=== PATIENT | female | born 1945 | race Caucasian/White ===

== ENCOUNTER 2017-08-24 07:52 | Inpatient (IN) | payer MEDICARE, OTHER ==
[~2017-08-24] VITALS: Ht 162.6 cm; Wt 97.2 kg
[~2017-08-24 07:52] MED LIST: ALLO300T PO; AMIT10TA PO; AMLO5TAB2 PO; BUDE10.2 INH; BUDE180A INH; CHOL500045 PO; CYAN100028 PO; FISH OIL OMEGA1 EACH PO; FURO40TA6 PO; GABA300C10 PO; HYDR-3237 PO; LEVO150T5 PO; LOSA50TA6 PO; METF100010 PO; OMEP40CA6 PO; POTA8TAB6 PO; SIMV40TA3 PO
[2017-08-24] MEDS ORDERED: ALBUTEROL SULFATE 2.5 MG/3 ML ONE (08:05)
[2017-08-24] MEDS ORDERED: ALBUTEROL SULFATE 2.5 MG/3 ML NPPB ONE (08:10)
[2017-08-24] MEDS ORDERED: SODIUM CHLORIDE 0.9% 1,000ML IVBOLUS ONE (08:30)
[2017-08-24] MEDS ORDERED: SODIUM CHLORIDE FLUSH 10ML SYR IVF ONE (08:30)
[2017-08-24 08:33] LABS: BASOPHILS # (AUTO) 0.02 x10^3/uL (0-0.1); BASOPHILS % (AUTO) 0 % (0-1); EOSINOPHILS # (AUTO) 0.02 x10^3/uL (0-0.4); EOSINOPHILS % (AUTO) 0 % (1-7); LYMPHOCYTES # (AUTO) 1.84 x10^3/uL (1-3.4); LYMPHOCYTES % (AUTO) 22 % (22-44); MD NO; MEAN CORPUSCULAR HEMOGLOBIN 28.8 pg (27.0-34.8); MEAN CORPUSCULAR HGB CONC 32.8 g/dL (32.4-35.8); MEAN CORPUSCULAR VOLUME 87.9 fL (80-100); MEAN PLATELET VOLUME 7.4 fL (7.4-10.4); MONOCYTES # (AUTO) 0.58 x10^3/uL (0.2-0.8); MONOCYTES % (AUTO) 7 % (2-9); NEUTROPHILS # (AUTO) 5.93 x10^3/uL (1.8-6.8); NEUTROPHILS % (AUTO) 71 % (42-75); PLATELET COUNT 528 x10^3/uL (130-400); RED CELL DISTRIBUTION WIDTH 18.3 % (9.6-15.2)
[2017-08-24 08:38] LABS: INTERNATIONAL NORMALIZED RATIO 0.91 (0.93-1.1); PROTHROMBIN TIME 9.5 Seconds (9.6-11.5)
[2017-08-24 08:42] LABS: ALANINE AMINOTRANSFERASE 22 U/L (12-78); ALBUMIN 2.3 g/dL (3.4-5.0); ANION GAP 9 mmol/L (5-15); CALCIUM 8.2 mg/dL (8.5-10.1); CHLORIDE 100 mmol/L (98-107)
[2017-08-24 08:44] LABS: ALKALINE PHOSPHATASE 88 U/L (45-117); BILIRUBIN,TOTAL 0.3 mg/dL (0.2-1.0); TOTAL PROTEIN 5.8 g/dL (6.4-8.2)
[2017-08-24] MEDS ORDERED: ALPH300C PO (10:07)
[2017-08-24] MEDS ORDERED: ALPR0.5T10 SL (10:08)
[2017-08-24] MEDS ORDERED: AMIT50TA PO (10:09)
[2017-08-24] MEDS ORDERED: AMIT10TA PO (10:10)
[2017-08-24] MEDS ORDERED: CYAN1TAB29 PO (10:11)
[2017-08-24] MEDS ORDERED: ASPI-650 PO (10:11)
[2017-08-24] MEDS ORDERED: MULT-752 PO (10:12)
[2017-08-24] MEDS ORDERED: CHOL5000 PO (10:13)
[2017-08-24] MEDS ORDERED: FOLI0.8T2 PO (10:14)
[2017-08-24] MEDS ORDERED: FURO20TA3 PO (10:15)
[2017-08-24] MEDS ORDERED: IRON15TA3 PO (10:17)
[2017-08-24] MEDS ORDERED: POTA20TA37 PO (10:19)
[2017-08-24] MEDS ORDERED: DAPA1TAB5 PO (10:20)
[2017-08-24 10:21] LABS: CULTURE INDICATED? YES; MICROSCOPIC INDICATED
[2017-08-24] MEDS ORDERED: CLOB15CR19 EXT (10:21)
[2017-08-24] MEDS ORDERED: ALLO300T PO (10:23)
[2017-08-24] MEDS ORDERED: CEFTRIAXONE PMX 1GM/50ML 50 ML ONE (11:36)
[2017-08-24] MEDS ORDERED: CEFTRIAXONE PMX 1GM/50ML 50 ML IV ONE (12:00)
[2017-08-24] MEDS ORDERED: ACETAMINOPHEN 325 MG TABLET PO PRN (13:30)
[2017-08-24] MEDS ORDERED: METOCLOPRAMIDE 5 MG/ML, 2ML IVPush PRN (13:30)
[2017-08-24] MEDS ORDERED: PROMETHAZINE 25 MG/ML, 1ML IM PRN (13:30)
[2017-08-24] MEDS ORDERED: ONDANSETRON 2MG/ML, 2ML IVPush PRN (13:30)
[2017-08-24] MEDS: ENOXAPARIN 40 MG/0.4 ML SQ SCH (14:39)
[2017-08-24] MEDS: ONDANSETRON ODT 4 MG PO PRN ×2 (14:39→20:18)
[2017-08-24] MEDS: SODIUM CHLORIDE 0.9% 1,000 ML IV SCH ×2 (14:39→23:58)
[2017-08-24 16:31] VITALS: BP 175/78
[2017-08-24 16:37] VITALS: BP 173/82
[2017-08-24] MEDS ORDERED: hydrALAzine 20 MG/ML, 1ML IV PRN (17:00)
[2017-08-24 19:04] VITALS: BP 161/80
[2017-08-24] MEDS: GABAPENTIN 400 MG CAPSULE PO SCH (20:18)
[2017-08-24] MEDS: SIMVASTATIN 40 MG TABLET PO SCH (20:18)
[2017-08-24] MEDS: LOSARTAN 50MG TABLET PO SCH (20:19)
[2017-08-24] MEDS: AMITRIPTYLINE 10 MG TABLET PO SCH (20:19)
[2017-08-24] MEDS: OMEPRAZOLE 20 MG CAPSULE.DR PO SCH (20:19)
[2017-08-24] MEDS: CEFTRIAXONE PMX 1GM/50ML 50 ML IV SCH (23:58)
[2017-08-25 01:12] VITALS: BP 149/68
[2017-08-25 04:50] LABS: BASOPHILS # (AUTO) 0.03 x10^3/uL (0-0.1); BASOPHILS % (AUTO) 0 % (0-1); EOSINOPHILS # (AUTO) 0.14 x10^3/uL (0-0.4); EOSINOPHILS % (AUTO) 2 % (1-7); LYMPHOCYTES # (AUTO) 2.86 x10^3/uL (1-3.4); LYMPHOCYTES % (AUTO) 35 % (22-44); MD NO; MEAN CORPUSCULAR HEMOGLOBIN 29.3 pg (27.0-34.8); MEAN CORPUSCULAR HGB CONC 32.6 g/dL (32.4-35.8); MEAN CORPUSCULAR VOLUME 89.9 fL (80-100); MEAN PLATELET VOLUME 7.5 fL (7.4-10.4); MONOCYTES % (AUTO) 9 % (2-9); NEUTROPHILS # (AUTO) 4.36 x10^3/uL (1.8-6.8); NEUTROPHILS % (AUTO) 54 % (42-75); PLATELET COUNT 441 x10^3/uL (130-400); RED BLOOD COUNT 3.92 x10^6/uL (3.82-5.3)
[2017-08-25 05:02] LABS: ALBUMIN 2.1 g/dL (3.4-5.0); ANION GAP 5 mmol/L (5-15); CALCIUM 7.6 mg/dL (8.5-10.1); CHLORIDE 105 mmol/L (98-107)
[2017-08-25 05:13] LABS: ALANINE AMINOTRANSFERASE 20 U/L (12-78); ALKALINE PHOSPHATASE 75 U/L (45-117); BILIRUBIN,TOTAL 0.3 mg/dL (0.2-1.0); CREATININE 0.67 mg/dL (0.55-1.02); TOTAL PROTEIN 5.3 g/dL (6.4-8.2)
[2017-08-25] MEDS: LEVOTHYROXINE 150 MCG TABLET PO SCH (06:40)
[2017-08-25 08:18] VITALS: BP 177/84
[2017-08-25] MEDS: AMLODIPINE 5 MG TABLET PO SCH (08:57)
[2017-08-25] MEDS: GABAPENTIN 400 MG CAPSULE PO SCH ×3 (08:57→21:06)
[2017-08-25] MEDS: ASPIRIN 81 MG TABLET EC PO SCH (08:58)
[2017-08-25] MEDS: LOSARTAN 50MG TABLET PO SCH ×2 (08:58→21:07)
[2017-08-25] MEDS: ALLOPURINOL 300 MG TABLET PO SCH (08:58)
[2017-08-25] MEDS: OMEPRAZOLE 20 MG CAPSULE.DR PO SCH ×2 (08:58→21:06)
[2017-08-25] MEDS: ONDANSETRON ODT 4 MG PO PRN (08:58)
[2017-08-25] MEDS: SODIUM CHLORIDE 0.9% 1,000 ML IV SCH ×3 (09:01→21:08)
[2017-08-25] MEDS: GUAIFENESIN ER 600 MG TABLET PO SCH ×2 (09:52→21:06)
[2017-08-25 11:22] LABS: CLOSTRIDIUM DIFFICILE ANTIGEN NEGATIVE; CLOSTRIDIUM DIFFICILE TOXIN NEGATIVE (Negative)
[2017-08-25] MEDS: ENOXAPARIN 40 MG/0.4 ML SQ SCH (12:51)
[2017-08-25 14:13] VITALS: BP 162/89
[2017-08-25 19:06] VITALS: BP 168/80
[2017-08-25] MEDS: SIMVASTATIN 40 MG TABLET PO SCH (21:05)
[2017-08-25] MEDS: AMITRIPTYLINE 10 MG TABLET PO SCH (21:06)
[2017-08-25] MEDS: CEFTRIAXONE PMX 1GM/50ML 50 ML IV SCH (23:54)
[2017-08-26 01:04] VITALS: BP 154/75
[2017-08-26] MEDS: LEVOTHYROXINE 150 MCG TABLET PO SCH (05:29)
[2017-08-26] MEDS: SODIUM CHLORIDE 0.9% 1,000 ML IV SCH (05:29)
[2017-08-26] MEDS ORDERED: LOPERAMIDE 2 MG CAPSULE PO PRN (08:00)
[2017-08-26 08:42] LABS: ANION GAP 6 mmol/L (5-15); CALCIUM 7.7 mg/dL (8.5-10.1); CHLORIDE 109 mmol/L (98-107); CREATININE 0.59 mg/dL (0.55-1.02)
[2017-08-26] MEDS: OMEPRAZOLE 20 MG CAPSULE.DR PO SCH (09:08)
[2017-08-26] MEDS: LOSARTAN 50MG TABLET PO SCH (09:08)
[2017-08-26] MEDS: ASPIRIN 81 MG TABLET EC PO SCH (09:08)
[2017-08-26] MEDS: ALLOPURINOL 300 MG TABLET PO SCH (09:08)
[2017-08-26] MEDS: AMLODIPINE 5 MG TABLET PO SCH (09:08)
[2017-08-26] MEDS: GABAPENTIN 400 MG CAPSULE PO SCH (09:08)
[2017-08-26] MEDS: GUAIFENESIN ER 600 MG TABLET PO SCH (09:08)
[2017-08-26 09:34] VITALS: BP 169/64
[2017-08-26] MEDS: ENOXAPARIN 40 MG/0.4 ML SQ SCH (13:30)
[2017-08-26] MEDS ORDERED: CEFD300C37 PO (13:51)
== END 2017-08-26 16:07 | disposition home or self-care (01) | DRG 391 ==
LOC: ED 11:30 → EDIP 11:31 → ED 11:50 → 3NW 12:17
PROVIDERS: ADMIT Internal Medicine; ATTEND Internal Medicine
DX: A08.4 Viral intestinal infection, unspecified (principal); E43 Unspecified severe protein-calorie malnutrition; N39.0 Urinary tract infection, site not specified; E11.42 Type 2 diabetes mellitus with diabetic polyneuropathy; E87.1 Hypo-osmolality and hyponatremia; R79.89 Other specified abnormal findings of blood chemistry; I10 Essential (primary) hypertension; E78.5 Hyperlipidemia, unspecified; E89.0 Postprocedural hypothyroidism; G89.29 Other chronic pain; R60.0 Localized edema; R94.6 Abnormal results of thyroid function studies; J40 Bronchitis, not specified as acute or chronic; G47.30 Sleep apnea, unspecified; K21.9 Gastro-esophageal reflux disease without esophagitis; Z82.3 Family history of stroke; Z86.14 Personal history of Methicillin resistant Staphylococcus aureus infection; Z89.412 Acquired absence of left great toe; Z90.710 Acquired absence of both cervix and uterus; Z68.36 Body mass index [BMI] 36.0-36.9, adult; Z90.49 Acquired absence of other specified parts of digestive tract
CPT/HCPCS: 36415; 74022; 80048; 80053; 81001; 83605; 83690; 83735; 84100; 84443; 85025; 85610; 87077; 87086; 87186; 87324; 93005; 94640; 96361; 96365; J0696; J1650; J7613; Q0162; J2765; J7030

== ENCOUNTER 2017-11-20 08:35 | Inpatient (IN) | payer MEDICARE, OTHER ==
[~2017-11-20] VITALS: Ht 162.6 cm; Wt 90.3 kg
[~2017-11-20 08:35] MED LIST changes: +ALPH300C PO; +ALPR0.5T10 SL; +AMIT50TA PO; -AMLO5TAB2 PO; +AMLO5TAB7 PO; +ASPI-650 PO; +CEFD300C37 PO; +CHOL5000 PO; +CLOB15CR19 EXT; +CYAN1TAB29 PO; +DAPA1TAB5 PO; +FOLI0.8T2 PO; +FURO20TA3 PO; +IRON15TA3 PO; -LOSA50TA6 PO; +LOSA50TA7 PO; +MULT-752 PO; +POTA20TA37 PO
[2017-11-20] MEDS ORDERED: SODIUM CHLORIDE FLUSH 10ML SYR IVF ONE (09:30)
[2017-11-20 09:35] LABS: BASOPHILS # (AUTO) 0.07 x10^3/uL (0-0.1); BASOPHILS % (AUTO) 1 % (0-1); EOSINOPHILS # (AUTO) 0.67 x10^3/uL (0-0.4); EOSINOPHILS % (AUTO) 7 % (1-7); LYMPHOCYTES # (AUTO) 2.85 x10^3/uL (1-3.4); LYMPHOCYTES % (AUTO) 31 % (22-44); MD NO; MEAN CORPUSCULAR HEMOGLOBIN 30.8 pg (27.0-34.8); MEAN CORPUSCULAR HGB CONC 33.1 g/dL (32.4-35.8); MEAN PLATELET VOLUME 7.4 fL (7.4-10.4); MONOCYTES # (AUTO) 0.88 x10^3/uL (0.2-0.8); MONOCYTES % (AUTO) 9 % (2-9); NEUTROPHILS # (AUTO) 4.84 x10^3/uL (1.8-6.8); NEUTROPHILS % (AUTO) 52 % (42-75); PLATELET COUNT 448 x10^3/uL (130-400); RED BLOOD COUNT 4.12 x10^6/uL (3.82-5.3); RED CELL DISTRIBUTION WIDTH 13.5 % (9.6-15.2)
[2017-11-20] MEDS ORDERED: ATOR-2 PO (09:36)
[2017-11-20] MEDS ORDERED: ALPH200C PO (09:37)
[2017-11-20] MEDS ORDERED: FURO-92 PO (09:40)
[2017-11-20 09:41] LABS: HCT (SEDRATE) 38.3 % (34.6-47.8)
[2017-11-20] MEDS ORDERED: LEVO150T5 PO (09:41)
[2017-11-20 09:46] LABS: ANION GAP 9 mmol/L (5-15); CALCIUM 8.3 mg/dL (8.5-10.1); CHLORIDE 99 mmol/L (98-107)
[2017-11-20 09:47] LABS: C-REACTIVE PROTEIN, QUANT 0.84 mg/dL (0.02-0.49); CREATININE 0.93 mg/dL (0.55-1.02)
[2017-11-20] MEDS ORDERED: PIPERACILLIN/TAZO/PMX 3.375GM 50 ML IV ONE (10:30)
[2017-11-20] MEDS ORDERED: PIPERACILLIN/TAZO/PMX 3.375GM 50 ML ONE (10:42)
[2017-11-20] MEDS ORDERED: SODIUM CHLORIDE FLUSH 10ML SYR IVF PRN (11:00)
[2017-11-20] MEDS ORDERED: ACETAMINOPHEN 325 MG TABLET PO PRN (11:30)
[2017-11-20] MEDS ORDERED: ENALAPRILAT 1.25 MG/ML, 2ML IVPush PRN (11:30)
[2017-11-20] MEDS ORDERED: DOCUSATE 100 MG CAPSULE PO PRN (11:30)
[2017-11-20] MEDS ORDERED: LABETALOL 5MG/ML, 20ML IVPush PRN (11:30)
[2017-11-20] MEDS ORDERED: LEVOTHYROXINE 150 MCG TABLET PO SCH (11:30)
[2017-11-20] MEDS ORDERED: ONDANSETRON 2MG/ML, 2ML IVPush PRN (11:30)
[2017-11-20] MEDS ORDERED: ONDANSETRON ODT 4 MG PO PRN (11:30)
[2017-11-20] MEDS ORDERED: BISACODYL 10 MG SUPP PR PRN (11:30)
[2017-11-20 12:05] LABS: HEMOGLOBIN A1C 6.4 % (4.2-6.3)
[2017-11-20] MEDS: SODIUM CHLORIDE 0.9% 1,000 ML IV SCH ×2 (13:51→23:55)
[2017-11-20 14:17] VITALS: BP 153/84
[2017-11-20] MEDS: GABAPENTIN 400 MG CAPSULE PO SCH ×2 (17:55→20:20)
[2017-11-20] MEDS: PIPERACILLIN/TAZO/PMX 3.375GM 50 ML IV SCH ×2 (18:44→23:55)
[2017-11-20 19:52] VITALS: BP 130/79
[2017-11-20] MEDS: ATORVASTATIN 80 MG TABLET PO SCH (20:19)
[2017-11-20] MEDS: LOSARTAN 50MG TABLET PO SCH (20:19)
[2017-11-20] MEDS ORDERED: IRON CARBONYL 65 MG HOMEMEDPO SCH (21:00)
[2017-11-20] MEDS: FERROUS SULFATE 325 MG TABLET PO SCH (21:33)
[2017-11-21 02:15] VITALS: BP 118/72
[2017-11-21] MEDS: LEVOTHYROXINE 150 MCG TABLET PO SCH (05:31)
[2017-11-21 05:33] LABS: CHLORIDE 106 mmol/L (98-107)
[2017-11-21 05:38] LABS: BASOPHILS # (AUTO) 0.11 x10^3/uL (0-0.1); BASOPHILS % (AUTO) 1 % (0-1); EOSINOPHILS # (AUTO) 0.63 x10^3/uL (0-0.4); EOSINOPHILS % (AUTO) 7 % (1-7); LYMPHOCYTES # (AUTO) 2.46 x10^3/uL (1-3.4); LYMPHOCYTES % (AUTO) 29 % (22-44); MD NO; MEAN CORPUSCULAR HGB CONC 33.9 g/dL (32.4-35.8); MEAN CORPUSCULAR VOLUME 94.2 fL (80-100); MEAN PLATELET VOLUME 7.6 fL (7.4-10.4); MONOCYTES # (AUTO) 0.77 x10^3/uL (0.2-0.8); MONOCYTES % (AUTO) 9 % (2-9); NEUTROPHILS # (AUTO) 4.51 x10^3/uL (1.8-6.8); NEUTROPHILS % (AUTO) 53 % (42-75); PLATELET COUNT 383 x10^3/uL (130-400); RED BLOOD COUNT 3.85 x10^6/uL (3.82-5.3); RED CELL DISTRIBUTION WIDTH 13.5 % (9.6-15.2)
[2017-11-21 05:39] LABS: ANION GAP 7 mmol/L (5-15); CALCIUM 7.8 mg/dL (8.5-10.1); CREATININE 0.61 mg/dL (0.55-1.02)
[2017-11-21] MEDS: PIPERACILLIN/TAZO/PMX 3.375GM 50 ML IV SCH ×3 (06:19→19:35)
[2017-11-21 07:00] VITALS: BP 113/69
[2017-11-21] MEDS: SENNA/DOCUSATE TABLET PO SCH (09:00)
[2017-11-21] MEDS ORDERED: CIT AC HOMEMEDPO SCH (09:00)
[2017-11-21] MEDS ORDERED: POTASSIUM BICARBONATE HOMEMEDPO SCH (09:00)
[2017-11-21] MEDS ORDERED: TEMPLATE NON-FORMULARY MED. (Alpha Lipoic Acid** 600 MG) PO SCH (09:00)
[2017-11-21] MEDS: PRENATAL VIT/IRON/FA 1 EACH TABLET PO SCH (09:00)
[2017-11-21] MEDS: TEMPLATE NON-FORMULARY MED. (Cyanocobalamin/Folic Acid** (Vitamin B12-Folic Acid Tablet**) HOMEMEDPO SCH (09:00)
[2017-11-21] MEDS: OMEGA-3/FISH OIL CAPSULE PO SCH (09:03)
[2017-11-21] MEDS: GABAPENTIN 400 MG CAPSULE PO SCH ×3 (09:03→21:56)
[2017-11-21] MEDS: ASPIRIN 81 MG TABLET EC PO SCH (09:04)
[2017-11-21] MEDS: FOLIC ACID 1 MG TABLET PO SCH (09:04)
[2017-11-21] MEDS: FUROSEMIDE 80 MG TABLET PO SCH (09:04)
[2017-11-21] MEDS: FERROUS SULFATE 325 MG TABLET PO SCH ×2 (09:04→21:56)
[2017-11-21] MEDS: AMLODIPINE 5 MG TABLET PO SCH (09:05)
[2017-11-21] MEDS: CHOLECALCIFEROL 5,000u TAB PO SCH (09:05)
[2017-11-21] MEDS: LOSARTAN 50MG TABLET PO SCH ×2 (09:05→21:55)
[2017-11-21] MEDS: SODIUM CHLORIDE 0.9% 1,000 ML IV SCH ×2 (09:06→19:35)
[2017-11-21] MEDS: HEPARIN 5,000 UNITS/ML, 1ML SQ SCH ×2 (13:07→21:56)
[2017-11-21 14:48] VITALS: BP 131/78
[2017-11-21 20:14] VITALS: BP 136/76
[2017-11-21] MEDS: ATORVASTATIN 80 MG TABLET PO SCH (21:55)
[2017-11-22] MEDS: PIPERACILLIN/TAZO/PMX 3.375GM 50 ML IV SCH ×3 (01:07→12:47)
[2017-11-22 03:35] VITALS: BP 142/79
[2017-11-22] MEDS: SODIUM CHLORIDE 0.9% 1,000 ML IV SCH ×2 (06:01→20:07)
[2017-11-22] MEDS: HEPARIN 5,000 UNITS/ML, 1ML SQ SCH ×3 (06:01→22:39)
[2017-11-22] MEDS: LEVOTHYROXINE 150 MCG TABLET PO SCH (06:01)
[2017-11-22 07:51] VITALS: BP 130/79
[2017-11-22 08:50] VITALS: BP 124/73
[2017-11-22] MEDS: FUROSEMIDE 80 MG TABLET PO SCH (08:57)
[2017-11-22] MEDS: LOSARTAN 50MG TABLET PO SCH ×2 (08:57→20:24)
[2017-11-22] MEDS: CHOLECALCIFEROL 5,000u TAB PO SCH (08:58)
[2017-11-22] MEDS: PRENATAL VIT/IRON/FA 1 EACH TABLET PO SCH (08:58)
[2017-11-22] MEDS: SENNA/DOCUSATE TABLET PO SCH (09:00)
[2017-11-22] MEDS: TEMPLATE NON-FORMULARY MED. (Cyanocobalamin/Folic Acid** (Vitamin B12-Folic Acid Tablet**) HOMEMEDPO SCH (09:00)
[2017-11-22] MEDS: FOLIC ACID 1 MG TABLET PO SCH (09:00)
[2017-11-22] MEDS: GABAPENTIN 400 MG CAPSULE PO SCH ×3 (09:00→20:24)
[2017-11-22] MEDS: FERROUS SULFATE 325 MG TABLET PO SCH ×2 (09:01→20:24)
[2017-11-22] MEDS: POTASSIUM CHLORIDE 20 MEQ TAB.ER.PRT PO SCH ×2 (09:01→16:46)
[2017-11-22] MEDS: AMLODIPINE 5 MG TABLET PO SCH (09:01)
[2017-11-22] MEDS: OMEGA-3/FISH OIL CAPSULE PO SCH (09:02)
[2017-11-22] MEDS: ASPIRIN 81 MG TABLET EC PO SCH (09:02)
[2017-11-22] MEDS ORDERED: GADOBUTROL 10 MMOL/10 ML PFS ONE (12:19)
[2017-11-22 14:16] VITALS: BP 135/76
[2017-11-22] MEDS: AMPICILLIN/SULBACTAM 3 GM in SODIUM CHLORIDE 0.9% 100 ML IV SCH (20:06)
[2017-11-22 20:21] VITALS: BP 166/81
[2017-11-22] MEDS: ATORVASTATIN 80 MG TABLET PO SCH (20:24)
[2017-11-22] MEDS: DOXYCYCLINE 100MG TABLET PO SCH (20:25)
[2017-11-23] MEDS: AMPICILLIN/SULBACTAM 3 GM in SODIUM CHLORIDE 0.9% 100 ML IV SCH ×3 (02:03→14:05)
[2017-11-23 03:06] VITALS: BP 139/79
[2017-11-23] MEDS: HEPARIN 5,000 UNITS/ML, 1ML SQ SCH ×3 (06:06→22:47)
[2017-11-23] MEDS: LEVOTHYROXINE 150 MCG TABLET PO SCH (06:06)
[2017-11-23 07:05] VITALS: BP 146/79
[2017-11-23] MEDS: DOXYCYCLINE 100MG TABLET PO SCH (08:59)
[2017-11-23] MEDS: PRENATAL VIT/IRON/FA 1 EACH TABLET PO SCH (08:59)
[2017-11-23] MEDS: FUROSEMIDE 80 MG TABLET PO SCH (08:59)
[2017-11-23] MEDS: FOLIC ACID 1 MG TABLET PO SCH (08:59)
[2017-11-23] MEDS: ASPIRIN 81 MG TABLET EC PO SCH (08:59)
[2017-11-23] MEDS: AMLODIPINE 5 MG TABLET PO SCH (08:59)
[2017-11-23] MEDS: SENNA/DOCUSATE TABLET PO SCH (09:00)
[2017-11-23] MEDS: LOSARTAN 50MG TABLET PO SCH ×2 (09:00→20:28)
[2017-11-23] MEDS: GABAPENTIN 400 MG CAPSULE PO SCH ×3 (09:00→20:28)
[2017-11-23] MEDS: FERROUS SULFATE 325 MG TABLET PO SCH ×2 (09:00→20:28)
[2017-11-23] MEDS: TEMPLATE NON-FORMULARY MED. (Cyanocobalamin/Folic Acid** (Vitamin B12-Folic Acid Tablet**) HOMEMEDPO SCH (09:00)
[2017-11-23] MEDS: OMEGA-3/FISH OIL CAPSULE PO SCH (09:00)
[2017-11-23] MEDS: CHOLECALCIFEROL 5,000u TAB PO SCH (09:00)
[2017-11-23] MEDS: POTASSIUM CHLORIDE 20 MEQ TAB.ER.PRT PO SCH ×2 (09:14→16:20)
[2017-11-23] MEDS: SODIUM CHLORIDE 0.9% 1,000 ML IV SCH ×3 (10:06→22:46)
[2017-11-23 13:46] VITALS: BP 150/70
[2017-11-23 16:48] LABS: HCT (SEDRATE) 40.8 % (34.6-47.8)
[2017-11-23] MEDS: DOXYCYCLINE 100 MG in DEXTROSE 5% 250 ML IV SCH (16:57)
[2017-11-23 19:47] VITALS: BP 163/78
[2017-11-23] MEDS: ATORVASTATIN 80 MG TABLET PO SCH (22:46)
[2017-11-24 03:45] VITALS: BP 146/81
[2017-11-24] MEDS: DOXYCYCLINE 100 MG in DEXTROSE 5% 250 ML IV SCH ×2 (05:48→15:53)
[2017-11-24] MEDS: HEPARIN 5,000 UNITS/ML, 1ML SQ SCH ×3 (05:49→20:41)
[2017-11-24] MEDS: LEVOTHYROXINE 150 MCG TABLET PO SCH (05:53)
[2017-11-24 07:18] VITALS: BP 155/75
[2017-11-24] MEDS: TEMPLATE NON-FORMULARY MED. (Cyanocobalamin/Folic Acid** (Vitamin B12-Folic Acid Tablet**) HOMEMEDPO SCH (07:31)
[2017-11-24] MEDS: SENNA/DOCUSATE TABLET PO SCH (07:31)
[2017-11-24] MEDS: SODIUM CHLORIDE 0.9% 1,000 ML IV SCH ×2 (08:30→15:15)
[2017-11-24] MEDS: AMLODIPINE 5 MG TABLET PO SCH (08:45)
[2017-11-24] MEDS: PRENATAL VIT/IRON/FA 1 EACH TABLET PO SCH (08:46)
[2017-11-24] MEDS: LOSARTAN 50MG TABLET PO SCH ×2 (08:46→20:41)
[2017-11-24] MEDS: POTASSIUM CHLORIDE 20 MEQ TAB.ER.PRT PO SCH ×2 (08:46→15:44)
[2017-11-24] MEDS: OMEGA-3/FISH OIL CAPSULE PO SCH (08:46)
[2017-11-24] MEDS: GABAPENTIN 400 MG CAPSULE PO SCH ×3 (08:46→20:41)
[2017-11-24] MEDS: ASPIRIN 81 MG TABLET EC PO SCH (08:46)
[2017-11-24] MEDS: FUROSEMIDE 80 MG TABLET PO SCH (08:47)
[2017-11-24] MEDS: CHOLECALCIFEROL 5,000u TAB PO SCH (08:48)
[2017-11-24] MEDS: FERROUS SULFATE 325 MG TABLET PO SCH ×2 (08:57→20:41)
[2017-11-24] MEDS: FOLIC ACID 1 MG TABLET PO SCH (08:57)
[2017-11-24 14:03] VITALS: BP 158/84
[2017-11-24] MEDS ORDERED: PROPOFOL 10 MG/ML, 20ML ONE (17:10)
[2017-11-24] MEDS ORDERED: MIDAZOLAM 1 MG/ML, 2ML ONE (17:12)
[2017-11-24] MEDS ORDERED: FENTANYL PF 100 MCG/2ML ONE (17:12)
[2017-11-24 18:41] VITALS: BP 156/88
[2017-11-24] MEDS: ATORVASTATIN 80 MG TABLET PO SCH (20:40)
[2017-11-24 23:20] VITALS: BP 163/84
[2017-11-25 01:12] VITALS: BP 130/76
[2017-11-25] MEDS: DOXYCYCLINE 100 MG in DEXTROSE 5% 250 ML IV SCH (04:43)
[2017-11-25] MEDS: LEVOTHYROXINE 150 MCG TABLET PO SCH (04:43)
[2017-11-25] MEDS: SODIUM CHLORIDE 0.9% 1,000 ML IV SCH (04:43)
[2017-11-25] MEDS: HEPARIN 5,000 UNITS/ML, 1ML SQ SCH (04:44)
[2017-11-25 07:45] VITALS: BP 126/78
[2017-11-25] MEDS: SENNA/DOCUSATE TABLET PO SCH (09:00)
[2017-11-25] MEDS: TEMPLATE NON-FORMULARY MED. (Cyanocobalamin/Folic Acid** (Vitamin B12-Folic Acid Tablet**) HOMEMEDPO SCH (09:00)
[2017-11-25] MEDS: CHOLECALCIFEROL 5,000u TAB PO SCH (09:00)
[2017-11-25] MEDS: FOLIC ACID 1 MG TABLET PO SCH (09:04)
[2017-11-25] MEDS: FERROUS SULFATE 325 MG TABLET PO SCH (09:05)
[2017-11-25] MEDS: OMEGA-3/FISH OIL CAPSULE PO SCH (09:06)
[2017-11-25] MEDS: LOSARTAN 50MG TABLET PO SCH (09:08)
[2017-11-25] MEDS: ASPIRIN 81 MG TABLET EC PO SCH (09:11)
[2017-11-25] MEDS: FUROSEMIDE 80 MG TABLET PO SCH (09:11)
[2017-11-25] MEDS: GABAPENTIN 400 MG CAPSULE PO SCH ×2 (09:11→17:46)
[2017-11-25] MEDS: POTASSIUM CHLORIDE 20 MEQ TAB.ER.PRT PO SCH ×2 (09:12→17:46)
[2017-11-25] MEDS: AMLODIPINE 5 MG TABLET PO SCH (09:13)
[2017-11-25] MEDS: PRENATAL VIT/IRON/FA 1 EACH TABLET PO SCH (09:13)
[2017-11-25 13:10] VITALS: BP 149/82
[2017-11-25] MEDS ORDERED: DOXY100T PO (13:29)
[2017-11-29] MEDS ORDERED: LEVOTHYROXINE 25 MCG TABLET PO SCH (06:00)
[2017-11-29] MEDS ORDERED: LEVOTHYROXINE 200 MCG TABLET PO SCH (06:00)
== END 2017-11-25 17:57 | disposition home or self-care (01) | DRG 580 ==
LOC: ED 09:41 → 3NE 10:49
PROVIDERS: ADMIT Hospitalist; ATTEND Hospitalist
PROC: 0Y6S0Z0 Detachment at Left 2nd Toe, Complete, Open Approach (ICD-10-PCS; principal; 2017-11-24 18:00)
DX: L03.032 Cellulitis of left toe (principal); E87.1 Hypo-osmolality and hyponatremia; M86.8X8 Other osteomyelitis, other site; E11.65 Type 2 diabetes mellitus with hyperglycemia; E83.119 Hemochromatosis, unspecified; E66.9 Obesity, unspecified; E11.69 Type 2 diabetes mellitus with other specified complication; E78.5 Hyperlipidemia, unspecified; E89.0 Postprocedural hypothyroidism; G47.30 Sleep apnea, unspecified; E11.42 Type 2 diabetes mellitus with diabetic polyneuropathy; K21.9 Gastro-esophageal reflux disease without esophagitis; G89.29 Other chronic pain; I10 Essential (primary) hypertension; Z86.14 Personal history of Methicillin resistant Staphylococcus aureus infection; Z68.34 Body mass index [BMI] 34.0-34.9, adult; Z79.84 Long term (current) use of oral hypoglycemic drugs; Z82.3 Family history of stroke; Z89.412 Acquired absence of left great toe; Z89.429 Acquired absence of other toe(s), unspecified side; Z90.710 Acquired absence of both cervix and uterus
CPT/HCPCS: 36415; 80048; 82040; 83036; 85025; 85651; 86140; 86141; 87040; 87070; 87077; 87147; 87186; 87205; 88305; 96365; 99285; A9585; G0378; J0295; J1644; J2250; J2543; J2704; J3010; J7060; J7030